=== PATIENT | female | born 1995 ===

== ENCOUNTER 2018-08-03 03:30 | Emergency (ER) | payer BC, OTHER ==
[~2018-08-03] VITALS: Ht 165.1 cm; Wt 54.0 kg
[2018-08-03 05:24] VITALS: BP 97/55
== END 2018-08-03 06:11 | disposition home or self-care (01) ==
LOC: ED 06:11
DX: F10.120 Alcohol abuse with intoxication, uncomplicated (principal); F10.121 Alcohol abuse with intoxication delirium
CPT/HCPCS: 99283